=== PATIENT | male | born 1960 | race American Indian/Alaskan Native ===

== ENCOUNTER 2024-08-31 09:47 | Emergency (ER) | payer OTHER, SELFPAY ==
[2024-08-31 09:48] VITALS: PULSE 93; RESP 16; O2SAT 98
[2024-08-31 10:07] VITALS: BP 107/63; PULSE 59; RESP 18; TEMP 36.8; O2SAT 96; BMI 27.8
--- NOTE | 2024-08-31 10:14 | XR_ITS ---
Examination: CT abdomen and pelvis without contrast. Coronal 3-D reconstructions. Sagittal 2-D reconstructions. Date and time of exam:August 31, 2024 1033 hours INDICATIONS: Onset lower abdominal pain today CTDI: vol (mGy): 8.98 DLP: (mGycm): 575 Technique: Axial images of the abdomen have been obtained, 3 mm slice thickness Intravenous contrast material has not been administered. Low dose protocols were performed. One or more of the following dose reduction techniques were used; automated exposure control, adjustment of the mA and/or KV according to patient size, use of iterative reconstruction technique. Findings: No focal liver or splenic lesions No gallstones No pancreatic or adrenal mass Moderate bilateral renal parenchymal scar formation No hydronephrosis or ureteral calculi Aorta normal size Normal appendix No bowel obstruction Colonic diverticulosis, no diverticulitis Prostate irregular in contour, AP dimension 4.9 cm No bladder mass or bladder calculi IMPRESSION: Moderate bilateral renal parenchymal scar formation, no hydronephrosis or ureteral calculi Normal appendix Prostate irregular in contour, AP dimension 4.9 cm, recommend correlation with PSA Advanced diffuse lumbar degenerative disc disease
--- NOTE | 2024-08-31 10:15 | PD.EDRME ---
Rapid Medical Screening Exam RME Arrival date/time: 08/31/24 09:47 64-year-old male presents the emergency department complaints of dysuria and frequent urination Chief Complaint: Urogenital-Male Vital signs: Vital Signs Temperature 98.2 F 08/31/24 10:07 Pulse Rate 59 L 08/31/24 10:07 Respiratory Rate 18 08/31/24 10:07 Blood Pressure 107/63 08/31/24 10:07 Pulse Oximetry (%) 96 08/31/24 10:07 Oxygen Delivery Method Room Air 08/31/24 10:07
[2024-08-31 11:07] LABS: Basophils # (Auto) 0.1 Thou/mm3 (0.0-0.2); Basophils % (Auto) 1 % (0-2.5); Eosinophils # (Auto) 0.2 Thou/mm3 (0.0-0.5); Eosinophils % (Auto) 3 % (0-10); Hematocrit 38.6 % (41.0-53.0); Hemoglobin 13.1 g/dL (13.5-16.0); Immature Granulocytes % (Auto) 1 % (0-0); Immature Granulocytes Auto 0.04 Thou/mm3 (0.00-0.00); Lymphocytes # (Auto) 2.2 Thou/mm3 (1.0-4.8); Lymphocytes % (Auto) 26 % (10-50); Mean Corpuscular HGB Conc 33.9 g/dl (31.0-37.0); Mean Corpuscular Hemoglobin 30.5 pg (25.0-35.0); Mean Corpuscular Volume 90 fL (80-100); Monocytes # (Auto) 0.6 Thou/mm3 (0.0-0.8); Monocytes % (Auto) 8 % (0-12); Neutrophils # (Auto) 5.2 Thou/mm3 (1.8-7.7); Neutrophils % (Auto) 62 % (37-80); Nucleated Red Blood Cell % 0 /100 WBC (0); Platelet Count 216 Thou/mm3 (140-440); RDW Standard Deviation 43.5 fL (35.1-43.9); Red Blood Count 4.29 Miln/mm3 (4.50-5.90); White Blood Count 8.4 Thou/mm3 (3.8-10.6)
[2024-08-31 11:23] LABS: Alanine Aminotransferase 30 U/L (10-49); Albumin, Serum 4.3 gm/dL (3.4-4.8); Anion Gap 6 (7-16); Aspartate Amino Transferase 31 U/L (0-34); BUN/Creatinine Ratio 15 Ratio (12-20); Bilirubin,Total 0.8 mg/dL (0.3-1.2); Blood Urea Nitrogen 12 mg/dL (9-23); Calcium 9.4 mg/dL (8.3-10.6); Carbon Dioxide 27.6 mMol/L (20.0-31.0); Chloride 106 mMol/L (98-107); Creatinine (Component) 0.8 mg/dL (0.6-1.3); Estimated Creatinine Clearance 108.9 mL/min (>60); Glucose 104 mg/dL (74-106); Osmolality,Calculated 279 (275-295); Potassium 3.5 mMol/L (3.4-5.1); Sodium 140 mMol/L (136-145); Total Protein 6.5 gm/dL (5.7-8.2); eGFR > 60 See Note
[2024-08-31 11:24] LABS: Alkaline Phosphatase 63 U/L (46-116); Calcium (Corrected) 9.4 mg/dL (8.5-10.1); Globulin 2.2 gm/dL (2.3-3.5); Lipase 70 U/L (12-53)
--- NOTE | 2024-08-31 13:35 | PC.NURSE ---
This RN went in to evaluate pt. THis RN saw pt go into restroom, and asked pt if he was able to provide a urine, pt stated no. When asking questions related to symptoms pt raised his voice, asking why is this RN asking the same questions, that this RN should know the answers to all the questions as it should be in his chart. This RN explained the assessment process, stopped responding. Pt currently awaiting provider assessment. Call cho in reach.
--- NOTE | 2024-08-31 13:39 | EDNOTE_ITS ---
ED Male Genitalurinary RME/HPI General Chief complaint: Urogenital-Male Stated complaint: unable to urinate Time Seen by Provider: 08/31/24 13:33 Arrival date/time: 08/31/24 09:47 This is a 64-year-old male comes to the emergency room today with complaints of inability to urinate. Patient states that he has a history of enlarged prostate and takes medications for this but has not taken it in over a week. Patient reports that his father recently and that is why he is currently in [place]. Patient reports that he lives in [place]. Patient reports that he is on his way home and will take his medications as prescribed. Patient reports a history of hyperlipidemia and enlarged prostate. Patient denies fever, chills, nausea, vomiting, diarrhea. Patient states when he tries to urinate he only urinates a couple drops. Patient denies dysuria. Limitations: no limitations RME / HPI RME / HPI Narrative: 08/31/24 09:47 64-year-old male presents the emergency department complaints of dysuria and fr equent urination Related Data Allergies Allergy/AdvReac Type Severity Reaction Status Date / Time No Known Allergies Allergy Verified 08/31/24 09:54 Review of Systems Review of Systems Systems Reviewed: All systems reviewed, normal except as documented Past Medical History Past Medical History Comments PMH COMMENT: Enlarged prostate and hyperlipidemia ED Exam General Limitations: Present no limitations General appearance: Present alert and in no apparent distress Head Head exam: Present atraumatic Eye Eye exam: Present normal appearance, PERRL and EOMI ENT ENT exam: Present normal exam, normal oropharynx and mucous membranes moist Neck Neck exam: Present normal inspection, full ROM and trachea midline Chest Chest inspection: Present normal inspection and symmetric chest wall rise Respiratory Respiratory exam: Present normal lung sounds bilaterally Cardiovascular Cardiovascular exam: Present regular rate, normal rhythm and normal heart sounds Abdominal Exam Abdominal exam: Present soft and other (no pain to light palpation ) Extremities Exam Extremities exam: Present normal inspection and full ROM Back Exam Back exam: Present normal inspection and full ROM Neurological Exam Neurological exam: Present alert and oriented X3 Psychiatric Psychiatric exam: Present normal affect and normal mood Skin Skin exam: Present warm, dry and intact Course Quality Measures none Orders Category Date Time Status Bolden [Urinary Catheter] QS Care 08/31/24 13:[address] abdomen pelvis wo con Stat Exams 08/31/24 10:14 Completed EKG (ED Only) Stat Exams 08/31/24 15:44 Stop Req CBC Stat Lab 08/31/24 10:42 Completed Comprehensive Metabolic Panel Stat Lab 08/31/24 10:42 Completed Lipase Stat Lab 08/31/24 10:42 Completed Tamsulosin HCl [Flomax] Med 08/31/24 13:51 Discontinued 0.4 mg PO X1 ONE Vital Signs Vital signs: Vital Signs Temperature 98.2 F 08/31/24 10:07 Pulse Rate 59 L 08/31/24 10:07 Respiratory Rate 18 08/31/24 10:07 Blood Pressure 107/63 08/31/24 10:07 Pulse Oximetry (%) 96 08/31/24 10:07 Oxygen Delivery Method Room Air 08/31/24 10:07 Urogenital - Male MDM Narrative MDM Narrative:: Bolden catheter placed and 300 mL initially came out. urine looks clear. UA done but then canceled. Pt given a dose of flomax which patient takes at home. Pt did not want to keep bolden catheter and wanyted it removed prior to dc. Pt states he will take his home meds when he gets home. Pt told to come back to ED if symptoms change or worsen. CT abdomen and pelvis: Findings: No focal liver or splenic lesions No gallstones No pancreatic or adrenal mass Moderate bilateral renal parenchymal scar formation No hydronephrosis or ureteral calculi Aorta normal size Normal appendix No bowel obstruction Colonic diverticulosis, no diverticulitis Prostate irregular in contour, AP dimension 4.9 cm No bladder mass or bladder calculi IMPRESSION: Moderate bilateral renal parenchymal scar formation, no hydronephrosis or ureteral calculi Normal appendix Prostate irregular in contour, AP dimension 4.9 cm, recommend correlation with PSA Advanced diffuse lumbar degenerative disc disease . Patient data External records reviewed:: [facility] previous records Clinical information provided by:: patient Social determinants that could affect healthcare access:: none Patient has the following chronic illnesses:: none How is presenting disease/condition affected by chronic disease/condition?: no chronic disease Evaluation data The following diagnostics were reviewed and interpreted by me:: lab results and radiology exam(s) Lab and/or radiology exams considered but not ordered:: none Interpretation Summary: see note Medications / Prescriptions Medications or Prescriptions considered but not ordered:: none Medication administrations:: Medication Administration History Discontinued Medications Tamsulosin HCl (Tamsulosin Hcl 0.4 Mg Capsule) 0.4 mg PO X1 ONE Stop: 08/31/24 13:52 Last Admin: 08/31/24 14:14 Dose: 0.4 mg Documented By: TM see mar Consultations Consultation(s) initiated? (list below): No Diagnosis Urogenital Male Differential Diagnosis: urinary tract infection, epididymitis, prostatitis and acute retention of urine Most likely diagnosis given after review of the tests above:: urinary retnesion ua results posted and no uti but then canceled Admission Indicated Admission indicated?: not indicated Admission Request Was there a request for admission?: No Disposition Plan Disposition Plan: Discharge Discharge Attestation Discharge Attestation: The patient and all family members were given an opportunity to ask questions and understood the discharge instructions. Discharge instructions specifically effects, indications for sooner follow up or return to the emergency department, and the expected course of current diagnosis. Patient condition: Stable Discharge Plan Plan Patient Disposition: HOME (Self Care) Patient condition on transfer: Stable Prescriptions/Referrals Referrals: No Primary/Family,Physician [Primary Care Provider] - In 1 week Problem List Clinical Impression: Acute urinary retention, Enlarged prostate Patient/Caregiver Discharge Instructions Discharge Activity: activity as tolerated Education Materials: ED Urinary Retention, Male Additional Instructions: Bolden removed by request. Continue to take Flomax as directed. Come back to the emergency room if symptoms change or worsen. Follow-up with primary provi mary jo in 1 to 2 days. Print Language: Lithuanian Stand Alone Forms: Emely Award Info., Patient Portal Info Letter Attestation Attestation The patient was seen by the midlevel practitioner. I, the co-signing physician, was present during the entire ER visit. While I did not physically examine the patient, I was available for consultation as needed.
[2024-08-31 14:06] VITALS: BP 130/69; PULSE 55; RESP 16; TEMP 36.5; O2SAT 98
[2024-08-31] MEDS: TAMSULOSIN HCL 0.4 MG CAPSULE PO (14:14)
--- NOTE | 2024-08-31 14:42 | PC.NURSE ---
Pt request urinal to go pee, this RN took pt a urinal, then pt refused saying that he actually pees and poops at the same time, and would like to use BR, this RN explained we would like to see how much he is able to urinate, and collect a urine, pt refused.
--- NOTE | 2024-08-31 15:00 | PC.NURSE ---
bolden catheter inserted at this time, urine collected off catheter. signal operator technical printed specimen stickers that was labled and placed on urine collected from catheter.
--- NOTE | 2024-08-31 16:35 | PC.NURSE ---
bolden taken out prior to discharge
== END 2024-08-31 16:37 | disposition home or self-care (01) ==
PROVIDERS: Nurse Practitioner Primary Care; Emergency Provider Emergency Medicine
DX: N40.1 Benign prostatic hyperplasia with lower urinary tract symptoms (principal); R33.8 Other retention of urine; N28.89 Other specified disorders of kidney and ureter; M51.369 Other intervertebral disc degeneration, lumbar region without mention of lumbar back pain or lower extremity pain
CPT/HCPCS: 51702; 36415; 74176; 80053; 80307; 81001; 83690; 84484; 85025; 85610; 99284; A9270